=== PATIENT | female | born 1995 | race Caucasian/White ===

== ENCOUNTER 2016-05-24 10:05 | Emergency (ER) | payer OTHER ==
[2016-05-24 10:44] LABS: HEMOGLOBIN 12.8 gm/dl (12.3-15.3); RED BLOOD COUNT 4.21 M/UL (4.00-5.10); WHITE BLOOD COUNT 4.9 K/UL (4.5-11.0)
[2016-05-24 11:04] LABS: BUN/CREATININE RATIO 21 (0-10)
== END 2016-05-24 13:20 | disposition home or self-care (01) ==
LOC: ER1 10:05
PROVIDERS: Emergency Medicine
DX: R07.9 Chest pain, unspecified (principal); R00.0 Tachycardia, unspecified; Z87.891 Personal history of nicotine dependence; Z88.0 Allergy status to penicillin
CPT/HCPCS: 36415; 71010; 80053; 81001; 82550; 82553; 83874; 84484; 84703; 85025; 85379; 93005; 93270; 99285

== ENCOUNTER → 2016-06-09 | Outpatient (CLI) | payer OTHER ==
[2016-06-09 12:50] LABS: HEMOGLOBIN 12.5 gm/dl (12.3-15.3); RED BLOOD COUNT 4.09 M/UL (4.00-5.10); WHITE BLOOD COUNT 4.4 K/UL (4.5-11.0)
[2016-06-09 13:11] LABS: BUN/CREATININE RATIO 23 (0-10)
== END ==
LOC: LAB 11:55
DX: Z11.4 Encounter for screening for human immunodeficiency virus [HIV] (principal); R94.5 Abnormal results of liver function studies; R53.83 Other fatigue; B18.2 Chronic viral hepatitis C; R68.89 Other general symptoms and signs
CPT/HCPCS: 80053; 80074; 80076; 82248; 85027; 87390

== ENCOUNTER → 2016-07-05 | Outpatient (CLI) | payer OTHER | LOC: RT 12:25 | DX: R00.0 Tachycardia, unspecified (principal) ==

== ENCOUNTER → 2016-07-18 | Outpatient (CLI) | payer OTHER | LOC: HEART 5 11:00 | DX: R00.0 Tachycardia, unspecified (principal); R00.2 Palpitations | CPT/HCPCS: 93306 ==

== ENCOUNTER → 2020-04-01 | Outpatient (CLI) | payer OTHER ==
[~2020-04-01] MED LIST: FLEXERIL 10 MG10 MG PO; IBUPROFEN600 MG PO; PHENERGAN 12.12.5 M1 PO; PRENATAL VITAM1 EAC3 PO; ROBAXIN 750 MG750 MG PO; SUBUTEX 8 MG TAB8 MG SL; ZOFRAN4 MG PO
== END ==
LOC: RAD 10:18
DX: M54.5 Low back pain (principal); M51.86 Other intervertebral disc disorders, lumbar region
CPT/HCPCS: 72110